=== PATIENT | female | born 1965 | race Two or more races ===

== ENCOUNTER 2018-06-02 11:19 | Emergency (ER) | payer MEDICAID ==
[~2018-06-02] VITALS: Ht 152.4 cm; Wt 66.2 kg
[~2018-06-02 11:19] MED LIST: CYCLOBENZAPRINE10 MG ORAL; FERROUS SULFAT325 MG PO; GLUCOPHAGE500 MG PO; IBUPROFEN600 M1 PO; IBUPROFEN600 MG PO; TRAMADOL HCL50 MG ORAL; TYLENOL500 MG PO
[2018-06-02] MEDS ORDERED: Cyclobenzaprine 10mg Tab ORAL ONE (12:00)
[2018-06-02] MEDS ORDERED: Ketorolac 60mg Inj IM ONE (12:00)
--- NOTE | 2018-06-02 12:57 | Emergency Room Report ---
History of Present Illness General Chief Complaint: Pain Source: Patient Present Illness HPI 52-year-old healthy female comes ER with complaints of left low back and left hip pain for the past month, denies fevers, urinary complaints, does report she had a fall 1 month ago and that's what starter symptomatology. The pain is worse with bearing weight constant and radiates down her left hip to her leg, denies leg swelling, chest pain, shortness of breath, palpitations, recent travel. His symptoms, abdominal pain, fevers chills, GI symptomatology or hematuria dysuria or any other complaints. Ago with only partial relief Allergies: Coded Allergies: No Known Allergies (Unverified , 09/22/12) Patient History Past Medical History: see triage record Last Menstrual Period: NA Now: No Reviewed Nursing Documentation: PMH: Agreed; PSxH: Agreed Nursing Documentation-PMH Past Medical History: No History, Except For Hx Diabetes: Yes Review of Systems All Other Systems: negative except mentioned in HPI Physical Exam Vital Signs Date Time Temp Pulse Resp B/P (MAP) Pulse Ox O2 Delivery O2 Flow Rate FiO2 06/02/18 11:27 98.2 72 18 130/70 93 Room Air 98.2 Sp02 EP Interpretation: reviewed, normal General Appearance: no apparent distress, alert, non-toxic Head: normocephalic Eyes: bilateral eye normal inspection, bilateral eye PERRL, bilateral eye EOMI ENT: normal ENT inspection, hearing grossly normal, normal pharynx, no angioedema, normal voice, moist mucus membranes Neck: normal inspection, full range of motion, supple, supple/symm/no masses Respiratory: chest non-tender, lungs clear, normal breath sounds, chest symmetrical, palpation of chest normal Cardiovascular #1: normal peripheral pulses, regular rate, rhythm Cardiovascular #2: 2+ radial (R), 2+ radial (L), 2+ dorsalis pedis (R), 2+ dorsalis pedis (L) Gastrointestinal: normal inspection, non tender, soft, no mass, no guarding, no rebound Rectal: deferred Genitourinary: normal inspection, no CVA tenderness Musculoskeletal: back normal, gait/station normal, normal range of motion, non- tender, no calf tenderness, Lulú's Sign negative Neurologic: alert, responsive, web coordinator III-XII nml as tested, motor strength/tone normal, SLR negative - Positive on left lower extremity, sensory intact, speech normal Psychiatric: judgement/insight normal, memory normal, mood/affect normal, no suicidal/homicidal ideation Skin: normal color, no rash, warm/dry, normal turgor Lymphatic: no adenopathy Medical Decision Making Diagnostic Impression: Primary Impression: Sciatica ER Course Patient normal x-rays, signs and symptoms consistent with sciatica, will discharge home Other X-Ray Diagnostic Results Other X-Ray Diagnostic Results #1: X-Ray ordered: L hip # of Views/Limited Vs Complete: 2 View Indication: Pain EP Interpretation: Yes Interpretation: no dislocation, no soft tissue swelling, no fractures, nonspecific bowel gas Impression: No acute disease Electronically Signed by: Joleen Frederick MD Other X-Ray Diagnostic Results #2: X-Ray ordered: Lumbar spine # of Views/Limited Vs Complete: 3 View Indication: Pain EP Interpretation: Yes Interpretation: no dislocation, no soft tissue swelling, no fractures, nonspecific bowel gas Impression: No acute disease Electronically Signed by: Joleen Frederick MD Last Vital Signs Date Time Temp Pulse Resp B/P (MAP) Pulse Ox O2 Delivery O2 Flow Rate FiO2 06/02/18 12:12 98.2 06/02/18 11:27 72 18 130/70 93 Room Air Referrals: NOT CHOSEN KIANA/,REFERRING (PCP) JOLEEN FREDERICK M.D Jun 02, 2018 12:57
[2018-06-02] MEDS ORDERED: CYCLOBENZAPRINE10 MG ORAL (12:58)
[2018-06-02] MEDS ORDERED: IBUPROFEN600 MG ORAL (12:58)
[2018-06-02 13:25] VITALS: BP 129/73
--- NOTE | 2018-06-02 14:11 | Diagnostic Imaging Report ---
Indication: Pain Technique: 2 views of the left hip Comparison: none Findings: No definite acute fractures. No dislocations. The joint spaces are preserved. Impression: No acute process
--- NOTE | 2018-06-02 14:14 | Diagnostic Imaging Report ---
Indication: Pain Technique: 3 views of the lumbar spine Comparison: None Findings: There is degenerative narrowing of the L5-S1 disc. The remaining disc spaces are preserved. The vertebral body heights are preserved. The bony alignment is normal. Bones are equivocally osteoporotic. Pedicles are intact. Sacral arches are preserved. Sacroiliac joint spaces are preserved Impression: L5-S1 disc degeneration No acute bony trauma
== END 2018-06-02 13:28 | disposition home or self-care (01) ==
LOC: EMR 11:58
DX: M51.17 Intervertebral disc disorders with radiculopathy, lumbosacral region (principal); E11.9 Type 2 diabetes mellitus without complications
CPT/HCPCS: 72020; 73502; 96372; 99284